=== PATIENT | female | born 1995 | race Caucasian/White ===

== ENCOUNTER 2016-08-14 21:18 | Emergency (ER) | payer MEDICAID ==
[~2016-08-14] VITALS: Ht 154.9 cm; Wt 49.0 kg
[~2016-08-14 21:18] MED LIST: LEVA0.042 IH
[2016-08-14 21:30] VITALS: BP 115/93
--- NOTE | 2016-08-14 21:36 | NUR ---
PT TAKEN TO ULTRASOUND FROM [facility]
--- NOTE | 2016-08-14 21:49 | NUR ---
[facility] DRAWING LABS
--- NOTE | 2016-08-14 21:49 | NUR ---
PT RETURN FROM ULTRASOUND
[2016-08-14 22:04] LABS: BASOPHILS # (AUTO) 0.3 K/uL (0.00-0.22); BASOPHILS % (AUTO) 4.3 % (0.0-2.0); EOSINOPHILS # (AUTO) 0.2 K/uL (0-0.4); HEMATOCRIT 38.1 % (36-48); HEMOGLOBIN 12.9 g/dL (12.0-16.0); LYMPHOCYTES # (AUTO) 2.4 K/uL (2.5-16.5); LYMPHOCYTES % (AUTO) 29.9 % (20.5-51.1); MEAN CORPUSCULAR HEMOGLOBIN 31 pg (27-31); MEAN CORPUSCULAR HGB CONC 34 g/dL (33-37); MEAN CORPUSCULAR VOLUME 93 fL (80-94); MONOCYTES # (AUTO) 0.7 K/uL (0.8-1.0); MONOCYTES % (AUTO) 8.5 % (1.7-9.3); NEUTROPHILS # (AUTO) 4.3 K/uL (1.8-7.7); NEUTROPHILS % (AUTO) 54.3 % (42.2-75.2); PLATELET COUNT (AUTO) 219 K/uL (140-450); RED BLOOD CELL COUNT(AUTO) 4.12 MIL/uL (4.20-5.40); RED CELL DISTRIBUTION WIDTH 13.2 % (11.6-13.7); WHITE BLOOD COUNT (AUTO) 7.9 K/uL (4.8-10.8)
[2016-08-14 22:14] LABS: ANION GAP 11.5 (8-16); CALCIUM 8.8 mg/dL (8.5-10.1); CARBON DIOXIDE 29.1 mmol/L (21-32); CREATININE 0.6 mg/dL (0.6-1.3); POTASSIUM 3.6 mmol/L (3.5-5.1)
[2016-08-14 22:45] LABS: APPEARANCE,URINE CLEAR (CLEAR); BILIRUBIN,URINE NEGATIVE (NEGATIVE); BLOOD, URINE 2+ (NEGATIVE); COLOR,URINE YELLOW (YELLOW); LEUKOCYTE ESTERASE ,URINE NEGATIVE (NEGATIVE); NITRITE, URINE NEGATIVE (NEGATIVE); PROTEIN,URINE NEGATIVE (NEGATIVE); UGLUCOSE NEGATIVE (NEGATIVE); UROBILINOGEN,URINE 0.2 EU/dL (0.2 - 1)
[2016-08-14 22:58] LABS: BACTERIA,URINE OCCASSIONAL /HPF (None Seen); RBC,URINE 0-5 (RARE) /HPF (0-5); WBC,URINE 0-5 (RARE) /HPF (0-5)
--- NOTE | 2016-08-14 23:50 | NUR ---
PT TAKEN TO BED 6
--- NOTE | 2016-08-15 | NUR ---
PATIENT PRESENTS TO ED WITH C/O LIGHT BRIGHT SPOTTING WITH NO VISIBLE CLOTS X 1 DAY . PT STATES NO TRAUMA TO THE PELVIC OR AB. PT IS ON HER FIRST WITH ALSO COMPLAINT OF LOW BACK PAIN; SKIN IS PINK/WARM/DRY; AAOX4 WITH EVEN AND STEADY GAIT; LUNGS CLEAR BL; HR EVEN AND REGULAR; PT DENIES ANY FEVER, CP, SOB, OR COUGH AT THIS TIME; PATIENT STATES PAIN OF 8/10 AT THIS TIME; VSS; PATIENT POSITIONED FOR COMFORT; HOB ELEVATED; BEDRAILS UP X2; BED DOWN. ER MD MADE AWARE OF PT STATUS.
--- NOTE | 2016-08-15 00:03 | NUR ---
PT STATES SHE IS 10 WEEKS
--- NOTE | 2016-08-15 00:18 | NUR ---
Dr. Angelo evaluating patient at bedside.
[2016-08-15 01:02] VITALS: BP 111/75
--- NOTE | 2016-08-15 01:03 | NUR ---
Note marvin in EDM - 08/15/16 at 0141 by JANICE Patient discharged with v/s stable. Written and verbal after care instructions given and explained. Patient alert, oriented and verbalized understanding of instructions. Ambulatory with steady gait. All questions addressed prior to discharge. ID band removed. Patient advised to follow up with PMD.NO Rx given. Patient educated on indication of medication including possible reaction and side effects. Opportunity to ask questions provided and answered.
--- NOTE | 2016-08-15 01:09 | NUR ---
DELAYED DISCHARGE PER DR FERREIRA. DR FERREIRA WILL ORDER ANTI-ANXIETY MED.
[2016-08-15] MEDS ORDERED: LORazepam 2 MG/ML VIAL IM ONE (01:10)
== END 2016-08-15 01:40 | disposition home or self-care (01) ==
LOC: MED 21:18
DX: O36.4XX0 Maternal care for intrauterine death, not applicable or unspecified (principal)
CPT/HCPCS: 36415; 76801; 80048; 81001; 84702; 85025; 86900; 86901; 96372; 99285; J2060